=== PATIENT | male | born 1970 | race Caucasian/White ===

== ENCOUNTER → 2023-08-27 12:53 | Outpatient (CLI) | payer OTHER, SELFPAY ==
--- NOTE | 2023-08-27 12:56 | CT_ITS ---
FINAL REPORT TECHNIQUE: Axial imaging of the head was obtained without contrast. This study was performed with techniques to keep radiation doses as low as reasonably achievable, (ALARA). Individualized dose reduction techniques using automated exposure control or adjustment of mA and/or kV according to the patient''s size were employed. CLINICAL HISTORY: POSSIBLE STROKE FINDINGS: There is encephalomalacia in the right occipital lobe which may be related to old infarct. Asymmetric hypodensity is seen in the right basal ganglia, ischemia not excluded. There is no hemorrhage or hydrocephalus. Posterior fossa is without acute abnormality. There is a small amount of fluid in the right maxillary sinus. There is no acute osseous abnormality. No air-fluid levels are identified. IMPRESSION: No acute hemorrhage. Age-indeterminate right basal ganglia hypodensity, ischemia not excluded. Recommend MRI for further evaluation. Right occipital encephalomalacia likely related to old vascular insult. Reviewed, Interpreted and Dictated by Tamiko Lim MD Transcribed by Janiya Rios Authenticated and . [facility]
== END ==
PROVIDERS: PCP Family Medicine; Visit Provider Specialist
DX: I63.9 Cerebral infarction, unspecified (principal)
CPT/HCPCS: 70450

== ENCOUNTER 2024-06-27 22:54 | Emergency (ER) | payer SELFPAY ==
[2024-06-27 22:56] VITALS: BP 136/85; PULSE 67; RESP 18; TEMP 36.6; O2SAT 94; BMI 33.2
--- NOTE | 2024-06-27 23:22 | ED_ITS ---
Discharge Plan Disposition Patient Disposition: Home, Self-Care Condition: Good Prescriptions Prescriptions: New Saline Nasal 0.65 % aerosol,spray 1 spray intranasal Q3H PRN (Reason: nasal congestion) Qty: 44 0RF No Action aspirin 81 mg tablet,delayed release (DR/EC) 81 mg PO DAILY carvedilol 25 mg tablet 25 mg PO BID Rx Instructions: must administer with a meal/food atorvastatin 80 mg tablet 80 mg PO HS spironolactone 25 mg tablet 25 mg PO DAILY clopidogrel 75 mg tablet 75 mg PO DAILY mecobalamin (vitamin B12) 1,000 mcg tablet,chewable 1,000 mcg PO DAILY furosemide 20 mg tablet 20 mg PO DAILY nifedipine 90 mg tablet extended release 24hr 90 mg PO DAILY escitalopram oxalate [Lexapro] 10 mg tablet 10 mg PO DAILY hydroxyzine pamoate [Vistaril] 25 mg capsule 25 mg PO HS acetaminophen 500 mg capsule 500 mg PO Q6H PRN cholecalciferol (vitamin D3) 25 mcg (1,000 unit) capsule 25 mcg PO DAILY clonidine HCl 0.1 mg tablet 0.2 mg PO HS Referrals Follow up/Referrals: Angela Chan [Primary Care Provider] - See instructions Rubia Schmitt APRN [Nurse Practitioner] - See instructions (recurrent epistaxis) Activity Restrictions/Add. Instructions Additional Instructions/Restrictions: You were evaluated in the ER and are appropriate for discharge at this time. Be gentle on your nose, do not pick it or put anything in it. Use a humidifier in your room. Use the prescribed saline spray in your nose a few times a day to keep it moist and prevent bleeding. If your nose starts to bleed again, use 1 spray of the provided oxymetazoline spray in the side that is bleeding and put pressure for 30 minutes. Follow-up with ENT, call their office for an appointment. Return to the ER with new, worsening, or otherwise concerning symptoms. 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 Patient had a similar mild nosebleed approximately 1 week ago, however this 1 has been present for approximately 3 hours and has not stopped on its own so he came to the ER. Patient reports he has been exchanging the toilet paper in his nose every few minutes. Most recently approximately 5 minutes prior to my exam. Patient does not report any other new associated symptoms. He denies any nasal trauma. He denies any recent sick symptoms. He is not coughing or vomiting blood, he does not have any taste of blood in the back of his throat right now. No blood running down his throat that he can tell. Related Data Home Medications ?Medication ?Instructions ?Recorded ?Confirmed acetaminophen 500 mg capsule 500 mg PO Q6H PRN 08/27/23 10/01/23 aspirin 81 mg tablet,delayed 81 mg PO DAILY 08/27/23 10/01/23 release atorvastatin 80 mg tablet 80 mg PO HS 08/27/23 10/01/23 carvedilol 25 mg tablet 25 mg PO BID 08/27/23 10/01/23 cholecalciferol (vitamin D3) 25 25 mcg PO DAILY 08/27/23 10/01/23 mcg (1,000 unit) capsule clopidogrel 75 mg tablet 75 mg PO DAILY 08/27/23 10/01/23 escitalopram oxalate 10 mg tablet 10 mg PO DAILY 08/27/23 10/01/23 (Lexapro) furosemide 20 mg tablet 20 mg PO DAILY 08/27/23 10/01/23 hydroxyzine pamoate 25 mg capsule 25 mg PO HS 08/27/23 10/01/23 (Vistaril) mecobalamin (vitamin B12) 1,000 1,000 mcg PO DAILY 08/27/23 10/01/23 mcg chewable tablet nifedipine 90 mg tablet,extended 90 mg PO DAILY 08/27/23 10/01/23 release 24 hr spironolactone 25 mg tablet 25 mg PO DAILY 08/27/23 10/01/23 clonidine HCl 0.1 mg tablet 0.2 mg PO HS 10/01/23 10/01/23 Previous Rx's ?Medication ?Instructions ?Recorded sodium chloride 0.65 % nasal spray 1 spray intranasal Q3H PRN nasal 06/28/24 aerosol (Saline Nasal) congestion #44 mL Allergies Allergy/AdvReac Type Severity Reaction Status Date / Time ampicillin Allergy Unknown Verified 10/01/23 10:31 cephalexin [From Keflex] Allergy Unknown Verified 10/01/23 10:31 penicillin G Allergy Unknown Verified 10/01/23 10:31 [facility] Disclaimer: The information contained in this section may have been updated after the patient was seen, as this information can be updated by other users. Medical History (Updated 06/28/24 @ 00:18 by Ben Toussaint MD) History of stent insertion of renal artery Peripheral vascular disease High cholesterol Heart disease Stroke Family History Other Cancer Heart attack Social History Smoking Status: Unknown if ever smoked alcohol intake: never counseling given: No current occupational status: employed Travel in the last 8 weeks: None household members: children marital status: caffeine: Yes ROS Obtained: Yes All systems reviewed & no additional complaints except as documented Positive ROS per HPI Physical Exam General General appearance: alert and in no apparent distress Head Head exam: atraumatic and normocephalic Eye Eye exam: Present PERRL and EOMI ENT ENT exam: Present normal oropharynx (No blood running down the back of the throat), mucous membranes moist and other (Small superficial anterior vessel in the right nare with slow ooze, left side normal.) Neck Neck exam: Present normal inspection and full ROM Chest Chest inspection: Present symmetric chest wall rise Respiratory Respiratory exam: Present normal lung sounds bilaterally; Absent respiratory distress, wheezes or stridor Cardiovascular Cardiovascular exam: Present regular rate and normal rhythm Abdominal Exam Abdominal exam: Present soft; Absent distention or tenderness Extremities Exam Extremities exam: Present full ROM Neurological Exam Neurological exam: Present alert and oriented X3; Absent motor sensory deficit Psychiatric Psychiatric exam: Present normal affect and normal mood Skin Skin exam: Present warm and dry Medical Decision Making Medical Records Medical records reviewed: Yes I reviewed the patient's medical records. MR Comment: Most recent neurology note from 10/01/2023 reviewed. This demonstrates patient had mild left-sided weakness and dysarthria which have been gradually improving since the time of his CVA. 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 Patient was to continue aspirin, Plavix, statins at that time, currently he is not on aspirin. Senthil Inquiry Pt receiving controlled substance: No Vital Signs: 06/27/24 22:56 06/28/24 00:20 Temperature 97.9 F 98.1 F Temperature Source Oral Oral Pulse Rate 67 Pulse Rate [Left Radial] 67 Respiratory Rate 18 18 Blood Pressure 117/73 Blood Pressure [Right Arm] 136/85 Blood Pressure Mean [Right Arm] 102 Blood Pressure Source Automatic Cuff Blood Pressure Source [Right Arm] Automatic Cuff Blood Pressure Position Sitting Blood Pressure Position [Right Arm] Sitting 02 Sat by Pulse Oximetry 94 L Oxygen Delivery Method Room Air Room Air Orders (Tests/Meds): ED MEDICATIONS Discontinued Medications Generic Name Dose Route Start Last Admin Trade Name Freq PRN Reason Stop Dose Admin Oxymetazoline HCl 1 ml 06/27/24 23:31 06/27/24 23:32 Oxymetazoline Nasal [place] 0.05% 15ml NS 06/27/24 23:32 1 ml ONCE ONE Administration Medical Decision Narrative: In summary, this 53-year-old male with history of prior CVA which is a comorbidity of current condition, increases his overall morbidity, and his active antiplatelet use increases risk of continued bleeding presents to the emergency department today with continued right nare epistaxis. On initial evaluation patient is hemodynamically stable, afebrile, mild slow bleeding from the right anterior nare without brisk bleeding, no blood running down the back of the throat, remainder of exam reassuring, GCS 15, no new localizing neurologic deficits. Differential diagnosis includes but is not limited to anterior nosebleed, I considered posterior nosebleed though I have low suspicion for this since patient has obvious anterior bleeding vessel as well as no brisk bleeding, no bleeding down the back of the throat, I considered the possibility of significant blood loss but have no evidence of this on exam since patient has brisk capillary refill, normal heart rate, and no other associated symptoms. Patient does not require any labs or imaging at this time. Oxymetazoline was administered in the right nare after patient had blown his nose to clear any current existing clot. Gauze was placed in the nose for pressure. Patient was monitored for approximately 45 minutes. At this time gauze was removed, he did not have any continued bleeding. He was sent home with a bottle of oxymetazoline for future symptomatic use if needed and provided a referral to ENT for outpatient follow-up and potential cautery. I also prescribed saline nasal spray for symptomatic management. Patient was given instructions on symptomatic management, follow up instructions, and return precautions for the emergency department. Patient indicated understanding and was discharged in stable condition. Critical Care Critical Care Time Critical Care Time: No
[2024-06-27] MEDS: OXYMETAZOLINE NASAL SPRAY 0.05% 15ML NS (23:32)
[2024-06-28 00:20] VITALS: BP 117/73; PULSE 67; RESP 18; TEMP 36.7; O2SAT 97
== END 2024-06-28 00:24 | disposition home or self-care (01) ==
PROVIDERS: Emergency Provider Emergency Medicine; PCP Family Medicine
DX: R04.0 Epistaxis (principal); I73.9 Peripheral vascular disease, unspecified; I51.89 Other ill-defined heart diseases; I69.354 Hemiplegia and hemiparesis following cerebral infarction affecting left non-dominant side; Z79.02 Long term (current) use of antithrombotics/antiplatelets; Z79.82 Long term (current) use of aspirin
CPT/HCPCS: 99283